=== PATIENT | female | born 1990 | race Native Hawaiian/Other Pacific Islander ===

== ENCOUNTER 2017-05-13 12:17 | Emergency (ER) | payer OTHER ==
[2017-05-13 13:14] VITALS: TEMP 98; O2SAT 100
--- NOTE | 2017-05-13 14:15 | ED PDOC ---
HPI: Female Pain Time Seen by Provider: 05/13/17 13:54 Chief Complaint (Nursing): Female Genitourinary Chief Complaint (Provider): Female Genitourinary History Per: Patient History/Exam Limitations: language barrier (Patient's friend is acting as a volunteer services manager upon the patient's request.) Current Symptoms Are (Timing): Still Present Additional Complaint(s): Chanell Perez is a 27 year old female with no past medical history and no prior pregnancies that presents to the ED with a chief complaint of pelvic pain and vaginal spotting. She denies any weakness or dizziness. Patient reports that her LMP was 03/27/17. Last Menstral Period: 03/27/17 : 1 Para: 0 Miscarriage: 0 Past Medical History Reviewed: Historical Data, Nursing Documentation, Vital Signs Vital Signs: Last Vital Signs Temp 98 F 05/13/17 13:11 Pulse 96 H 05/13/17 13:11 Resp 18 05/13/17 13:11 BP 120/67 05/13/17 13:11 Pulse Ox 100 05/13/17 13:11 - Medical History PMH: No Chronic Diseases - Surgical History Surgical History: No Surg Hx - Family History Family History: States: Unknown Family Hx - Living Arrangements Living Arrangements: With Family - Social History Current smoker - smoking cessation education provided: No - Home Medications Home Medications: Ambulatory Orders Medication Instructions Recorded No Known Home Med 05/13/17 - Allergies Allergies/Adverse Reactions: Allergies Allergy/AdvReac Type Severity Reaction Status Date / Time No Known Allergies Allergy Verified 05/13/17 13:11 Review of Systems Genitourinary Female: Positive for: Vaginal Bleeding (vaginal spotting), Pelvic Pain Neurological: Negative for: Weakness, Dizziness Physical Exam - Reviewed Nursing Documentation Reviewed: Yes Vital Signs Reviewed: Yes - Physical Exam Appears: Positive for: Non-toxic, No Acute Distress Head Exam: Positive for: ATRAUMATIC, NORMOCEPHALIC Skin: Positive for: Normal Color, Warm Cardiovascular/Chest: Positive for: Regular Rate, Rhythm. Negative for: Murmur Respiratory: Positive for: Normal Breath Sounds. Negative for: Wheezing Gastrointestinal/Abdominal: Positive for: Soft, Tenderness (mild suprapubic tenderness). Negative for: Normal Exam, Guarding, Rebound Neurologic/Psych: Positive for: Alert, Oriented. Negative for: Motor/Sensory Deficits - Laboratory Results Result Diagrams: 05/13/17 14:16 05/13/17 14:16 - ECG O2 Sat by Pulse Oximetry: 100 (RA) Pulse Ox Interpretation: Normal Medical Decision Making Medical Decision Making: Impression: Possible Ectopic Plan: * CMP * CBC * Beta-HCG * Urinalysis * Urine * US Transvaginal * Reevaluation Patient's urine is positive for . labs reviewed, HCG 26966 Hgb normal Pending TVUS endorsed Dr Barfield 5pm Scribe Attestation: Documented by Eladia Horowitz, acting as a scribe for Rocky Jama III, DO. Provider Scribe Attestation: All medical record entries made by the Scribe were at my direction and personally dictated by me. I have reviewed the chart and agree that the record accurately reflects my personal performance of the history, physical exam, medical decision making, and the department course for this patient. I have also personally directed, reviewed, and agree with the discharge instructions and disposition. Disposition - Clinical Impression Clinical Impression: Threatened - Patient ED Disposition Is Patient to be Admitted: Transfer of Care - Disposition Disposition: Transfer of Care Disposition Time: 17:00 Condition: STABLE Patient Signed Over To: Steven Barfield
[2017-05-13 14:56] LABS: BASO % 0.3 % (0.0-2.0); EOS # 0.1 K/uL (0.0-0.7); EOS % 0.7 % (0.0-4.0); HEMOGLOBIN 13.2 g/dL (12.0-16.0); LYMPH # 1.1 K/uL (1.0-4.3); MEAN CELL VOLUME 88.8 fl (81.0-99.0); MEAN CORPUSCULAR HEMOGLOBIN 29.7 pg (27.0-31.0); MEAN CORPUSCULAR HGB CONC 33.5 g/dL (33.0-37.0); MEAN PLATELET VOLUME 8.3 fl (7.2-11.7); MONO # 0.5 K/uL (0.0-0.8); MONO % 6.9 % (0.0-10.0); NEUT # 5.7 K/uL (1.8-7.0); NEUT % 77.1 % (50.0-75.0); NRBC % 0.1 % (0.0-0.0); RBC 4.45 Mil/uL (3.80-5.20); RED CELL DISTRIBUTION WIDTH 12.8 % (11.5-14.5); WHITE BLOOD COUNT 7.4 K/uL (4.8-10.8)
[2017-05-13 15:09] LABS: ALBUMIN 4.5 g/dL (3.5-5.0)
[2017-05-13 15:11] LABS: GFR AFRICAN-AMERICAN > 60; GFR NON-AFRICAN AMERICAN > 60
[2017-05-13 15:12] LABS: ALB/GLOB RATIO 1.4 (1.0-2.1); ALT/SGPT 15 U/L (9-52); AST/SGOT 31 U/L (14-36); BLOOD UREA NITROGEN 8 mg/dl (7-17)
[2017-05-13 15:13] LABS: CALCIUM 9.4 mg/dL (8.4-10.2)
[2017-05-13 15:36] LABS: SQUAMOUS EPITHIAL 1 /hpf (0-5); URINE BACTERIA RARE (<OCC); URINE BILIRUBIN NEGATIVE (NEGATIVE); URINE BLOOD SMALL (NEGATIVE); URINE CLARITY SLIGHTY-CLOUDY (Clear); URINE COLOR YELLOW (YELLOW); URINE GLUCOSE (UA) NEG (Normal); URINE LEUKOCYTE ESTERASE NEG Leu/uL (Negative); URINE NITRATE NEGATIVE (NEGATIVE); URINE PROTEIN NEGATIVE (NEGATIVE); URINE UROBILINOGEN 0.2-1.0 mg/dL (0.2-1.0)
--- NOTE | 2017-05-13 17:33 | ED PDOC ---
- Laboratory Results Result Diagrams: 05/13/17 14:16 05/13/17 14:16 - ECG O2 Sat by Pulse Oximetry: 100 (RA) Pulse Ox Interpretation: Normal Medical Decision Making Medical Decision Making: Receiving sign out: Patient signed out to me by Dr. Jama at 1700 pending US Transvaginal results. Scribe Attestation: Documented by Leena Arenas acting as a scribe for Steven Barfield MD. Provider Attestation: All medical record entries made by the Scribe were at my direction and personally dictated by me. I have reviewed the chart and agree that the record accurately reflects my personal performance of the history, physical exam, medical decision making, and the department course for this patient. I have also personally directed, reviewed, and agree with the discharge instructions and disposition. 1838: Pending US. Dr. Amezquita to take over care. Disposition - Clinical Impression Clinical Impression: Threatened - POA Present On Arrival: None - Disposition Disposition: Transfer of Care Disposition Time: 18:58 Condition: STABLE
--- NOTE | 2017-05-13 19:14 | ED PDOC ---
- Laboratory Results Result Diagrams: 05/13/17 14:16 05/13/17 14:16 - ECG O2 Sat by Pulse Oximetry: 100 (RA) Pulse Ox Interpretation: Normal Medical Decision Making Medical Decision Making: Receiving sign out: Patient signed out to me by Dr. Barfield pending US Transvaginal. Scribe Attestation: Documented by Leena Arenas acting as a scribe for Luis Manuel Amezquita MD. Provider Attestation: All medical record entries made by the Scribe were at my direction and personally dictated by me. I have reviewed the chart and agree that the record accurately reflects my personal performance of the history, physical exam, medical decision making, and the department course for this patient. I have also personally directed, reviewed, and agree with the discharge instructions and disposition. Disposition Counseled Patient/Family Regarding: Studies Performed, Diagnosis, Need For Followup - Clinical Impression Clinical Impression: Threatened - POA Present On Arrival: None - Disposition Referrals: [facility] [Outside] [facility] [Outside] Disposition: Routine/Home Disposition Time: 20:45 Condition: IMPROVED Additional Instructions: follow up with your primary server security administrator or the [facility] in 2 days. return to the ED with any worsening or concerning symptoms Instructions: Threatened Miscarriage (ED) Progress Note - Review of Symptoms Events since last encounter: Time: 2032 US Transvaginal IMPRESSION: Irregularity gestational sac without pole/ cardiac activity at this time Continued sonographic follow-up and correlation with serial beta-hCG levels is recommended. Time: 2051 Patient stable for discharge home. Will give referral to [facility] for follow up.
[2017-05-13 23:26] VITALS: BP 118/76; PULSE 91; RESP 16
--- NOTE | 2017-05-14 18:03 | US ---
Indication: Rule out ectopic, /bleeding Comparison: None available Technique: Transvaginal pelvic ultrasound. Findings: The uterus measures approximately 7.3 x 4.1 x 6.1 cm. Irregular contour of an intrauterine gestational sac. The gestational sac measures approximately 1.1 cm compatible with gestational age 5 weeks 1 day. 2 mm yolk sac. No evidence of pole at this time. The right ovary measures 3.3 x 1.2 x 1.1 cm. The left ovary measures 3.3 x 1.3 x 3.0 cm. Blood flow was demonstrated to both ovaries. Impression: Irregular appearance of the intrauterine gestational sac without pole identified at this time. Gestational age calculation for gestational sac measurement consistent with 5 weeks 1 day. Recommend correlation with quantitative beta HCG, AUTOCAD DESIGNER consultation, and close interval sonographic follow-up as indicated. Preliminary impression was provided by virtual radiologic.
== END 2017-05-13 21:20 | disposition home or self-care (01) ==
LOC: H.ER 12:17
DX: O20.0 Threatened abortion (principal)